=== PATIENT | female | born 1945 | race Caucasian/White ===

== ENCOUNTER → 2017-02-15 | Outpatient (CLI) | payer OTHER ==
[~2017-02-15] MED LIST: 'CIPRO PO; ALBUTEROL0.09 MG/A2 IH; AMARYL4 MG PO; ANTIVERT25 MG PO; ASPIRIN81 M1 PO; CARAFATE1 G1 PO; COZAAR100 MG PO; DUONEB 3 MG/3 ML3 M1 INH; FLEXERIL5 MG PO; HYDROCODONE BIT1 T11 PO; LASIX20 MG PO; LISINOPRIL20 MG PO; LOPRESSOR25 MG PO; METFORMIN500 MG PO; MULTIPLE VITAMI1 CAP PO; NEURONTIN300 MG PO; NORVASC10 MG PO; PREDNICOT10 MG PO; PREDNISONE5 MG PO; PROTONIX40 MG PO; SINGULAIR10 MG PO; SYNTHROID,LEVO88 MCG PO; VITAMIN D32000 IU PO; ZITHROMAX1 GM/PACKE PO; ZOCOR20 MG PO
[2017-02-15 11:29] LABS: BASO # 0.1 10*3/uL (0.0-0.1); BASO % 0.8 % (0.0-1.0); EOS # 0.4 10*3/uL (0.0-0.4); EOS % 3.8 % (1.0-4.0); HEMATOCRIT 38.5 % (37.0-47.0); IG # 0.1 10*3/uL (0.0-0.1); LYMPH # 2.4 10*3/uL (1.3-4.4); LYMPH % 24.8 % (27.0-41.0); MEAN CELL VOLUME 91.4 fl (81.0-99.0); MEAN CORPUSCULAR HGB 28.5 pg (27.0-31.0); MEAN CORPUSCULAR HGB CONC 31.2 g/dl (33.0-37.0); MEAN PLATELET VOLUME 13.2 fl (9.6-12.3); MONO # 0.6 10*3/uL (0.1-1.0); MONO % 6.7 % (3.0-9.0); NEUT % 63.4 % (47.0-73.0); PLATELET COUNT AUTOMATED 225 10*3/uL (130-400); RED BLOOD COUNT 4.21 10*6/uL (4.10-5.10); RED CELL DISTRI WIDTH 15.1 % (0-14.5); WHITE BLOOD COUNT 9.5 10*3/uL (4.8-10.8)
[2017-02-15 11:39] LABS: HEMOGLOBIN A1c 7.3 % (4.8-5.6)
[2017-02-15 11:56] LABS: ALBUMIN 3.6 gm/dl (3.1-4.5); BILIRUBIN, TOTAL 0.3 mg/dl (0.2-1.0); POTASSIUM 5.2 mmol/L (3.5-5.1); TOTAL PROTEIN 7.7 gm/dL (6.4-8.2)
[2017-02-15 12:04] LABS: THYROID STIM HORMONE (HS) 0.739 uIU/ml (0.358-4.75)
== END | disposition home or self-care (01) ==
LOC: LAB 10:52 → US 12:30
PROVIDERS: Nurse Practitioner Family
DX: N64.89 Other specified disorders of breast (principal); E78.4 Other hyperlipidemia; E11.9 Type 2 diabetes mellitus without complications; I10 Essential (primary) hypertension; E03.9 Hypothyroidism, unspecified; E55.9 Vitamin D deficiency, unspecified; J30.2 Other seasonal allergic rhinitis

== ENCOUNTER → 2017-03-22 | Outpatient (CLI) | payer OTHER ==
[2017-03-22 10:14] LABS: POTASSIUM 4.9 mmol/L (3.5-5.1)
== END | disposition home or self-care (01) ==
LOC: LAB 08:59
PROVIDERS: Internal Medicine Nephrology
DX: N18.9 Chronic kidney disease, unspecified (principal)